=== PATIENT | female | born 1945 | race American Indian/Alaskan Native ===

== ENCOUNTER 2019-11-26 00:13 | Emergency (ER) | payer MEDICARE ==
[2019-11-26] MEDS ORDERED: SODIUM CHLORIDE 0.9% 500 ML 500 ML IV ONE (00:46)
--- NOTE | 2019-11-26 00:51 | Emergency Department Report ---
ED General Adult HPI - General Stated complaint: HYPOTENSIVE Time Seen by Provider: 11/26/19 00:22 Source: patient, EMS Mode of arrival: Stretcher Limitations: Physical Limitation, Other - History of Present Illness Initial comments: 73-year-old female the past medical history of bipolar, schizophrenia, hypertension, dementia, elevated cholesterol on Eliquis for unknown reason presents to the hospital from home due to concerns of family for infection. He reported temperature at 99.0 at home and reported patient is weak. It is unclear if there is any alteration in patient's baseline mental status given her baseline psychiatric history and dementia. Patient is not ambulatory. Plan reported patient has recently had a hospital for SVT. Previous medical record reviewed here and this is patient's first visit. Patient is oriented to self only and denies pain but cannot hold a conversation and only could partially follow commands EMS reported that patient was recently discharged from the hospital here yesterday. However, previous medical record was not found. I asked for staff to further investigate and apparently incorrect name was provided by EMS. Patient is name, medical record number, account number, and date of from previous visit is copied and paste below Patient Name: ALEXIS ADAMS Date of : 1945 Patient Status: Inpatient Attending Provider: CLAUS SALDAÑA As per medical record patient was admitted here November 19 until the with a history of hypertension, multiple sacral pressure ulcers, heel ulcers, lizzie mbulatory, schizophrenia, chronic kidney disease with altered mental status, hypotension, and malnutrition. Patient was diagnosed with UTI, sepsis, and hypotension. Patient was nonverbal during recent admission. She was started on empiric antibiotic coverage and cultures were negative. Patient also had a metabolic acidosis, patient was treated with bicarb drip, and acidosis corrected prior to discharge. As per discharge summary they had difficulty contacting family. Patient had SVT on the and was evaluated by cardiology. She was started on metoprolol and Eliquis. PEG tube was recommended to family due to poor p.o. intake but refused and patient was discharged home without a PEG tube. As per discharge summary note daughter apparently feeds patient at home with syringes and states that she recently sent patient to the hospital for evaluation of her wounds. I attempted to call family at 2 AM at [phone] to clarify why patient was sent back to the ER and there was no response. - Related Data Allergies Allergy/AdvReac Type Severity Reaction Status Date / Time No Known Allergies Allergy Unverified 11/26/19 03:30 ED Review of Systems ROS: Stated complaint: HYPOTENSIVE Other details as noted in HPI Comment: Unobtainable due to pts medical conditions ED Physical Exam - Other Other exam information: General: No acute distress Head: Atraumatic Eyes: Patient forcing eyelids closed ENT: Moist mucous membranes Neck: Normal appearance, no midline tenderness Chest: Mild bilateral rhonchi without tachypnea or accessory muscle use CV: Regular rate and rhythm Abdomen: Soft, normal bowel sounds, nontender, nondistended, no rebound or guarding Back: Normal inspection Extremity: Normal inspection, full range of motion Neuro: Alert O x 1, equal handgrip, limited speech unable to hold a conversation, not ambulatory at baseline Psych: Appropriate behavior Skin: Chronic pressure ulcers ED Course Vital Signs 11/26/19 11/26/19 11/26/19 01:02 01:03 01:48 Temperature 97.9 F 97.5 F L 97.9 F Pulse Rate 102 H 92 H Respiratory 11 L 12 12 Rate Blood Pressure 82/61 100/70 [Right] O2 Sat by Pulse 100 98 98 Oximetry 11/26/19 11/26/19 11/26/19 02:47 03:07 03:54 Temperature Pulse Rate 87 77 85 Respiratory 11 L 11 L 11 L Rate Blood Pressure 111/71 99/64 115/78 [Right] O2 Sat by Pulse 100 100 100 Oximetry 11/26/19 11/26/19 11/26/19 04:10 04:45 05:02 Temperature Pulse Rate 78 81 85 Respiratory 11 L 10 L 11 L Rate Blood Pressure 118/70 103/71 113/71 [Right] O2 Sat by Pulse 100 100 100 Oximetry - Reevaluation(s) Reevaluation #1: 11/26/19 03:35 Patient's daughter Madelin Carlson called me at this time. She is patient's daughter/mill platform supervisor. She states she checked her blood pressure this evening prior to arrival and systolic was 64. She reached out to the emeritus nurse and was advised to bring patient to the ER. Patient is on Coreg 3.125 mg with instructions to be held if systolic pressure is less than 100. Daughter has not given Coreg since discharge from the hospital. I informed her that pressure spontaneously improved however BUN/creatinine ratio suggest mild dehydration. We will continue to observe patient and complete IV fluids and if pressure remains stable she will be discharged back home ED Medical Decision Making - Lab Data Result diagrams: 11/26/19 01:10 11/26/19 01:10 Lab Results 11/26/19 11/26/19 11/26/19 Range/Units 00:46 01:10 01:10 WBC 5.1 (4.5-11.0) K/mm3 RBC 3.81 (3.65-5.03) M/mm3 Hgb 11.6 (10.1-14.3) gm/dl Hct 34.8 (30.3-42.9) % MCV 91 (79-97) fl MCH 31 (28-32) pg MCHC 33 (30-34) % RDW 13.8 (13.2-15.2) % Plt Count 176 (140-440) K/mm3 Lymph % (Auto) 12.7 L (13.4-35.0) % Berrien % (Auto) 6.4 (0.0-7.3) % Eos % (Auto) 0.5 (0.0-4.3) % Baso % (Auto) 0.2 (0.0-1.8) % Lymph # 0.6 L (1.2-5.4) K/mm3 Berrien # 0.3 (0.0-0.8) K/mm3 Eos # 0.0 (0.0-0.4) K/mm3 Baso # 0.0 (0.0-0.1) K/mm3 Seg Neutrophils % 80.2 H (40.0-70.0) % Seg Neutrophils # 4.1 (1.8-7.7) K/mm3 PT (12.2-14.9) Sec. INR (0.87-1.13) APTT (24.2-36.6) Sec. VBG pH (7.320-7.420) Sodium 142 (137-145) mmol/L Potassium 3.7 (3.6-5.0) mmol/L Chloride 106.6 (98-107) mmol/L Carbon Dioxide 25 (22-30) mmol/L Anion Gap 14 mmol/L BUN 24 H (7-17) mg/dL Creatinine 0.8 (0.7-1.2) mg/dL Estimated GFR > 60 ml/min BUN/Creatinine Ratio 30 % Glucose 126 H (65-100) mg/dL Lactic Acid (0.7-2.0) mmol/L Calcium 8.9 (8.4-10.2) mg/dL Total Bilirubin 0.20 (0.1-1.2) mg/dL AST 17 (5-40) units/L ALT 12 (7-56) units/L Alkaline Phosphatase 58 (35-129) units/L Troponin T 0.049 H (0.00-0.029) ng/mL Total Protein 5.9 L (6.3-8.2) g/dL Albumin 3.0 L (3.9-5) g/dL Albumin/Globulin Ratio 1.0 % Triglycerides 61 (2-149) mg/dL Cholesterol 83 (50-199) mg/dL LDL Cholesterol Direct 40 L (50-130) mg/dL HDL Cholesterol 40 (40-59) mg/dL Cholesterol/HDL Ratio 2.07 % TSH (0.270-4.200) mlU/mL Free T4 (0.76-1.46) ng/dL Urine Color Yellow (Yellow) Urine Turbidity Clear (Clear) Urine pH 6.0 (5.0-7.0) Ur Specific Handley 1.015 (1.003-1.030) Urine Protein <15 mg/dl (Negative) mg/dL Urine Glucose (UA) Neg (Negative) mg/dL Urine Ketones Neg (Negative) mg/dL Urine Blood Neg (Negative) Urine Nitrite Neg (Negative) Urine Bilirubin Neg (Negative) Urine Urobilinogen < 2.0 (<2.0) mg/dL Ur Leukocyte Esterase Neg (Negative) Urine WBC (Auto) 2.0 (0.0-6.0) /HPF Urine RBC (Auto) < 1.0 (0.0-6.0) /HPF U Epithel Cells (Auto) 1.0 (0-13.0) /HPF Urine Mucus Few /HPF 11/26/19 11/26/19 11/26/19 Range/Units 01:10 01:10 01:10 WBC (4.5-11.0) K/mm3 RBC (3.65-5.03) M/mm3 Hgb (10.1-14.3) gm/dl Hct (30.3-42.9) % MCV (79-97) fl MCH (28-32) pg MCHC (30-34) % RDW (13.2-15.2) % Plt Count (140-440) K/mm3 Lymph % (Auto) (13.4-35.0) % Berrien % (Auto) (0.0-7.3) % Eos % (Auto) (0.0-4.3) % Baso % (Auto) (0.0-1.8) % Lymph # (1.2-5.4) K/mm3 Berrien # (0.0-0.8) K/mm3 Eos # (0.0-0.4) K/mm3 Baso # (0.0-0.1) K/mm3 Seg Neutrophils % (40.0-70.0) % Seg Neutrophils # (1.8-7.7) K/mm3 PT (12.2-14.9) Sec. INR (0.87-1.13) APTT (24.2-36.6) Sec. VBG pH 7.443 H (7.320-7.420) Sodium (137-145) mmol/L Potassium (3.6-5.0) mmol/L Chloride (98-107) mmol/L Carbon Dioxide (22-30) mmol/L Anion Gap mmol/L BUN (7-17) mg/dL Creatinine (0.7-1.2) mg/dL Estimated GFR ml/min BUN/Creatinine Ratio % Glucose (65-100) mg/dL Lactic Acid 1.80 (0.7-2.0) mmol/L Calcium (8.4-10.2) mg/dL Total Bilirubin (0.1-1.2) mg/dL AST (5-40) units/L ALT (7-56) units/L Alkaline Phosphatase (35-129) units/L Troponin T (0.00-0.029) ng/mL Total Protein (6.3-8.2) g/dL Albumin (3.9-5) g/dL Albumin/Globulin Ratio % Triglycerides (2-149) mg/dL Cholesterol (50-199) mg/dL LDL Cholesterol Direct (50-130) mg/dL HDL Cholesterol (40-59) mg/dL Cholesterol/HDL Ratio % TSH 2.130 (0.270-4.200) mlU/mL Free T4 1.84 H (0.76-1.46) ng/dL Urine Color (Yellow) Urine Turbidity (Clear) Urine pH (5.0-7.0) Ur Specific Handley (1.003-1.030) Urine Protein (Negative) mg/dL Urine Glucose (UA) (Negative) mg/dL Urine Ketones (Negative) mg/dL Urine Blood (Negative) Urine Nitrite (Negative) Urine Bilirubin (Negative) Urine Urobilinogen (<2.0) mg/dL Ur Leukocyte Esterase (Negative) Urine WBC (Auto) (0.0-6.0) /HPF Urine RBC (Auto) (0.0-6.0) /HPF U Epithel Cells (Auto) (0-13.0) /HPF Urine Mucus /HPF 04/03/ Range/Units 01:10 WBC (4.5-11.0) K/mm3 RBC (3.65-5.03) M/mm3 Hgb (10.1-14.3) gm/dl Hct (30.3-42.9) % MCV (79-97) fl MCH (28-32) pg MCHC (30-34) % RDW (13.2-15.2) % Plt Count (140-440) K/mm3 Lymph % (Auto) (13.4-35.0) % Berrien % (Auto) (0.0-7.3) % Eos % (Auto) (0.0-4.3) % Baso % (Auto) (0.0-1.8) % Lymph # (1.2-5.4) K/mm3 Berrien # (0.0-0.8) K/mm3 Eos # (0.0-0.4) K/mm3 Baso # (0.0-0.1) K/mm3 Seg Neutrophils % (40.0-70.0) % Seg Neutrophils # (1.8-7.7) K/mm3 PT 16.5 H (12.2-14.9) Sec. INR 1.31 H (0.87-1.13) APTT 25.9 (24.2-36.6) Sec. VBG pH (7.320-7.420) Sodium (137-145) mmol/L Potassium (3.6-5.0) mmol/L Chloride (98-107) mmol/L Carbon Dioxide (22-30) mmol/L Anion Gap mmol/L BUN (7-17) mg/dL Creatinine (0.7-1.2) mg/dL Estimated GFR ml/min BUN/Creatinine Ratio % Glucose (65-100) mg/dL Lactic Acid (0.7-2.0) mmol/L Calcium (8.4-10.2) mg/dL Total Bilirubin (0.1-1.2) mg/dL AST (5-40) units/L ALT (7-56) units/L Alkaline Phosphatase (35-129) units/L Troponin T (0.00-0.029) ng/mL Total Protein (6.3-8.2) g/dL Albumin (3.9-5) g/dL Albumin/Globulin Ratio % Triglycerides (2-149) mg/dL Cholesterol (50-199) mg/dL LDL Cholesterol Direct (50-130) mg/dL HDL Cholesterol (40-59) mg/dL Cholesterol/HDL Ratio % TSH (0.270-4.200) mlU/mL Free T4 (0.76-1.46) ng/dL Urine Color (Yellow) Urine Turbidity (Clear) Urine pH (5.0-7.0) Ur Specific Handley (1.003-1.030) Urine Protein (Negative) mg/dL Urine Glucose (UA) (Negative) mg/dL Urine Ketones (Negative) mg/dL Urine Blood (Negative) Urine Nitrite (Negative) Urine Bilirubin (Negative) Urine Urobilinogen (<2.0) mg/dL Ur Leukocyte Esterase (Negative) Urine WBC (Auto) (0.0-6.0) /HPF Urine RBC (Auto) (0.0-6.0) /HPF U Epithel Cells (Auto) (0-13.0) /HPF Urine Mucus /HPF - EKG Data -: EKG Interpreted by Nd EKG shows normal: sinus rhythm, ST-T waves (no stemi) Rate: normal (81) - EKG Data When compared to previous EKG there are: no significant change (compared to 11/23/19) - Radiology Data Radiology results: report reviewed CHEST 1 VIEW 1:01 AM INDICATION / CLINICAL INFORMATION: Low-grade fever. COMPARISON: None available. FINDINGS: SUPPORT DEVICES: None. HEART / MEDIASTINUM: The heart size and pulmonary vasculature are normal. The aorta is tortuous and mildly ectatic. LUNGS / PLEURA: No significant pulmonary or pleural abnormality. No pneumothorax. ADDITIONAL FINDINGS: There are bilateral chronic rotator cuff tears with degenerative changes involving both shoulders. IMPRESSION: No acute findings. There is no evidence of pneumonia. - Medical Decision Making Mild elevation in troponin noted. On November 19 troponin was 0.064 therefore patient has chronic elevation and is actually decreased today. Rectal temp does not reveal fever. Patient had a mild hypotension with initial vital signs but systolic pressure increased to 100 prior to administration of IV fluids. Initial mild tachycardia upon arrival also improved spontaneously Patient was discharged on metoprolol however, I do not see an antibiotic prescribed. As per medical record patient already has home health services with [facility] [phone]. Patient presented to the ED soiled in feces Urine rechecked via urine cath and no signs of acute infection Mild dehydration noted given BUN to creatinine ratio patient was provided 1000 mL of normal Case d/w with daughter, pt will be sent home since BP remained stable after IVF - Differential Diagnosis Dehydration, sepsis, anemia, adverse medication reaction, BP cuff error Critical Care Time: No Critical care attestation.: If time is entered above; I have spent that time in minutes in the direct care of this critically ill patient, excluding procedure time. ED Disposition Clinical Impression: Dehydration, Dementia, Schizophrenia, Transient hypotension Disposition: - TO HOME OR SELFCARE Is pt being admited?: No Condition: Stable Instructions: Dehydration (ED), Hypotension (ED) Additional Instructions: Continue your current medications as prescribed. Follow-up with your doctor or doctor/clinic provided. Return if symptoms worsen as indicated by your discharge instructions. Referrals: PRIMARY CARE, [Primary Care Provider] - 3-5 Days Time of Disposition: 05:56
[2019-11-26] MEDS ORDERED: SODIUM CHLORIDE 0.9% 1000 ML 1,000 ML IV ONE (01:16)
[2019-11-26 01:41] LABS: Basophils % (Auto) 0.2 % (0.0-1.8); Eosinophils % (Auto) 0.5 % (0.0-4.3); Hematocrit 34.8 % (30.3-42.9); Hemoglobin 11.6 gm/dl (10.1-14.3); Lymphocytes # (Auto) 0.6 K/mm3 (1.2-5.4); Lymphocytes % (Auto) 12.7 % (13.4-35.0); Mean Corpuscular HGB Conc 33 % (30-34); Mean Corpuscular Volume 91 fl (79-97); Monocytes # (Auto) 0.3 K/mm3 (0.0-0.8); Monocytes % (Auto) 6.4 % (0.0-7.3); Platelet Count 176 K/mm3 (140-440); Red Blood Count 3.81 M/mm3 (3.65-5.03); Red Cell Distribution Width 13.8 % (13.2-15.2)
--- NOTE | 2019-11-26 01:52 | XRay Report ---
CHEST 1 VIEW 1:01 AM INDICATION / CLINICAL INFORMATION: Low-grade fever. COMPARISON: None available. FINDINGS: SUPPORT DEVICES: None. HEART / MEDIASTINUM: The heart size and pulmonary vasculature are normal. The aorta is tortuous and m ildly ectatic. LUNGS / PLEURA: No significant pulmonary or pleural abnormality. No pneumothorax. ADDITIONAL FINDINGS: There are bilateral chronic rotator cuff tears with degenerative changes involvi ng both shoulders. IMPRESSION: No acute findings. There is no evidence of pneumonia. Signer Name: Rahul Peña MD Signed: 11/26/2019 1:47 AM Workstation Name: [id number]
[2019-11-26 01:58] LABS: Alanine Aminotransferase 12 units/L (7-56); BUN/Creatinine Ratio 30; Blood Urea Nitrogen 24 mg/dL (7-17); Calcium 8.9 mg/dL (8.4-10.2); Hemolysis Index 1
[2019-11-26 02:02] LABS: INR 1.31 (0.87-1.13)
[2019-11-26 02:03] LABS: Partial Thromboplastin Time 25.9 Sec. (24.2-36.6)
[2019-11-26 02:05] LABS: Free T4 (Free Thyroxine) 1.84 ng/dL (0.76-1.46)
[2019-11-26 02:34] LABS: Chol/HDL Ratio 2.07 %; HDL Cholesterol 40 mg/dL (40-59); LDL Cholesterol,Direct 40 mg/dL (50-130)
[2019-11-26 03:19] LABS: Bilirubin,Urine NEG (Negative); Blood,Urine NEG (Negative); Color,Urine Yellow (Yellow); Mucus,Urine FEW /HPF; Protein,Urine <15 mg/dL mg/dL (Negative); RBC,Urine < 1.0 /HPF (0.0-6.0); Urobilinogen,Urine < 2.0 mg/dL (<2.0)
[2019-11-26 10:23] VITALS: BP 99/68
== END 2019-11-26 10:24 | disposition home or self-care (01) ==
LOC: ED 00:13
DX: E86.0 Dehydration (principal); F03.90 Unspecified dementia, unspecified severity, without behavioral disturbance, psychotic disturbance, mood disturbance, and anxiety; F20.9 Schizophrenia, unspecified; I95.9 Hypotension, unspecified
CPT/HCPCS: 36415; 71045; 80053; 80061; 81001; 82140; 82805; 82962; 84439; 84443; 84484; 85025; 85610; 85730; 87040; 93005; 93010; 96360; 99284; J7040